=== PATIENT | female | born 1935 | race Caucasian/White ===

== ENCOUNTER 2018-04-24 22:17 | Emergency (ER) | payer OTHER ==
[~2018-04-24] VITALS: Ht 162.6 cm; Wt 55.3 kg
[~2018-04-24 22:17] MED LIST: ASPIRIN ADULT L81 M4 PO; ATENOLOL25 MG; BENAZEPRIL HCL/1 TAB PO; CELEXA20 MG PO; CITALOPRAM HYDR20 M1 PO; FEOSOL65 M1 PO; OMEPRAZOLE20 M2 PO; SYNTHROID0.075 MG PO; TENORMIN50 MG PO; ZOCOR20 MG PO; ZYPREXA2.5 MG PO
[2018-04-24 22:27] VITALS: Ht 162.6 cm; Wt 55.3 kg
[2018-04-24 23:45] LABS: BASOPHIL % 0.3 % (0-2); PLATELET COUNT 159 x10^3mcL (130-400); RED CELL DISTRIBUTION WIDTH 13.7 % (11.5-14.5)
[2018-04-24 23:51] LABS: CALCIUM 9.1 mg/dL (8.5-10.1); CARBON DIOXIDE 28.6 mmol/L (21-32); CHLORIDE SERUM 102 mmol/L (98-107); CREATININE SERUM 1.6 mg/dL (0.6-1.0); GLUCOSE SERUM 131 mg/dL (74-106); POTASSIUM SERUM 4.3 mmol/L (3.5-5.1); SODIUM SERUM 138 mmol/L (136-145)
[2018-04-24 23:55] LABS: ALKALINE PHOSPHATASE 50 U/L (46-116); ALT/SGPT 20 U/L (14-59); AST/SGOT 18 U/L (15-37); BILIRUBIN TOTAL 0.3 mg/dL (0.20-1.00); LIPASE 203 IU/L (73-393)
[2018-04-25 01:51] VITALS: BP 162/58
== END 2018-04-25 01:52 | disposition home or self-care (01) ==
LOC: ED 22:17
PROVIDERS: Emergency Medicine
DX: R42 Dizziness and giddiness (principal); I10 Essential (primary) hypertension; R11.2 Nausea with vomiting, unspecified; E78.00 Pure hypercholesterolemia, unspecified
CPT/HCPCS: J2405; J7030; J8597; Q0092

== ENCOUNTER 2019-04-23 17:08 | Inpatient (IN) | payer OTHER, MEDICAID ==
[~2019-04-23] VITALS: Ht 162.6 cm; Wt 57.2 kg
[2019-04-23 17:22] VITALS: Ht 162.6 cm; Wt 57.2 kg
[2019-04-23 17:52] LABS: BASOPHIL % 0.5 % (0-2); PLATELET COUNT 221 x10^3mcL (130-400); RED CELL DISTRIBUTION WIDTH 14.3 % (11.5-14.5)
[2019-04-23 18:01] LABS: CALCIUM 8.1 mg/dL (8.5-10.1); CARBON DIOXIDE 23.7 mmol/L (21-32); CHLORIDE SERUM 92 mmol/L (98-107); CREATININE SERUM 1.5 mg/dL (0.6-1.0); GLUCOSE SERUM 102 mg/dL (74-106); POTASSIUM SERUM 4.3 mmol/L (3.5-5.1); SODIUM SERUM 129 mmol/L (136-145)
[2019-04-23 18:06] LABS: ALBUMIN 3.5 g/dL (3.4-5.0); ALKALINE PHOSPHATASE 40 U/L (46-116); ALT/SGPT 19 U/L (14-59); AST/SGOT 21 U/L (15-37); BILIRUBIN TOTAL 0.3 mg/dL (0.20-1.00); TOTAL PROTEIN, SERUM 6.6 g/dL (6.4-8.2)
[2019-04-23] MEDS ORDERED: OXYBUTYNIN CHLOR5 MG PO (19:33)
[2019-04-23] MEDS ORDERED: LEXAPRO10 MG PO (19:34)
[2019-04-23] MEDS ORDERED: NATURE'S BLEND500 M3 PO (19:34)
[2019-04-23] MEDS ORDERED: LOT10 PO (19:35)
[2019-04-23] MEDS ORDERED: ATENOLOL50 MG PO (19:36)
[2019-04-23] MEDS ORDERED: EVISTA60 MG PO (19:36)
[2019-04-23] MEDS ORDERED: VITAMIN D22000 I1 PO (19:36)
[2019-04-23 20:41] LABS: MAGNESIUM 1.8 mg/dL (1.8-2.4); PHOSPHOROUS 4.3 mg/dL (2.5-4.9)
[2019-04-23 21:32] VITALS: BP 185/74
[2019-04-24 02:18] LABS: AMPHETAMINE QUAL UR NONE DETECTED (See below)
[2019-04-24 03:48] LABS: UA SPECIFIC GRAVITY <=1.005 (1.005-1.035); microscopic required? YES; urine erythrocyte TRACE (NEGATIVE)
[2019-04-24 05:05] VITALS: BP 132/48
[2019-04-24 07:03] LABS: CALCIUM 8.1 mg/dL (8.5-10.1); CARBON DIOXIDE 24.7 mmol/L (21-32); CHLORIDE SERUM 103 mmol/L (98-107); CREATININE SERUM 1.4 mg/dL (0.6-1.0); GLUCOSE SERUM 81 mg/dL (74-106); MAGNESIUM 1.9 mg/dL (1.8-2.4); PHOSPHOROUS 3.9 mg/dL (2.5-4.9); POTASSIUM SERUM 4.7 mmol/L (3.5-5.1); SODIUM SERUM 137 mmol/L (136-145)
[2019-04-24 07:37] LABS: BASOPHIL % 0.5 % (0-2); PLATELET COUNT 217 x10^3mcL (130-400); RED CELL DISTRIBUTION WIDTH 14.4 % (11.5-14.5)
[2019-04-24 10:40] VITALS: BP 153/49
[2019-04-24 13:13] LABS: IRON 37 ug/dL (50-170)
[2019-04-24 13:14] LABS: TOTAL IRON BINDING CAPACITY 204 ug/dL (250-450)
[2019-04-24 17:18] VITALS: BP 124/80
[2019-04-24 22:02] VITALS: BP 123/40
[2019-04-25 05:40] VITALS: BP 134/51
[2019-04-25 07:20] LABS: BASOPHIL % 0.7 % (0-2); PLATELET COUNT 220 x10^3mcL (130-400); RED CELL DISTRIBUTION WIDTH 14.4 % (11.5-14.5)
[2019-04-25 07:40] LABS: CALCIUM 8.5 mg/dL (8.5-10.1); CARBON DIOXIDE 25.6 mmol/L (21-32); CHLORIDE SERUM 106 mmol/L (98-107); CREATININE SERUM 1.4 mg/dL (0.6-1.0); GLUCOSE SERUM 86 mg/dL (74-106); MAGNESIUM 2.5 mg/dL (1.8-2.4); PHOSPHOROUS 4.7 mg/dL (2.5-4.9); POTASSIUM SERUM 4.5 mmol/L (3.5-5.1); SODIUM SERUM 141 mmol/L (136-145)
[2019-04-25 16:18] VITALS: BP 139/89
[2019-04-25 20:26] VITALS: BP 132/51
[2019-04-26 05:40] VITALS: BP 155/56
[2019-04-26 09:42] VITALS: BP 152/59
[2019-04-26] MEDS ORDERED: LACL PO (12:28)
[2019-04-26 12:34] VITALS: BP 152/59
== END 2019-04-26 16:54 | disposition home or self-care (01) | DRG 391 ==
LOC: ED 17:08 → MU 19:38
PROVIDERS: Internal Medicine; Internal Medicine Gastroenterology; ADMIT General Practice
PROC: 0DB68ZX Excision of Stomach, Via Natural or Artificial Opening Endoscopic, Diagnostic (ICD-10-PCS; principal; 2019-04-26)
DX: A08.4 Viral intestinal infection, unspecified (principal); N17.0 Acute kidney failure with tubular necrosis; E87.1 Hypo-osmolality and hyponatremia; E86.0 Dehydration; E83.51 Hypocalcemia; R60.9 Edema, unspecified; I10 Essential (primary) hypertension; E78.5 Hyperlipidemia, unspecified; F41.9 Anxiety disorder, unspecified; E03.9 Hypothyroidism, unspecified; M81.0 Age-related osteoporosis without current pathological fracture; D64.9 Anemia, unspecified; Z68.21 Body mass index [BMI] 21.0-21.9, adult
CPT/HCPCS: 43235; G0378; J0360; J1200; J1610; J2250; J2310; J2405; J3010; J3490; J7030; Q0092; Q9967